=== PATIENT | male | born 1980 | race Caucasian/White ===

== ENCOUNTER 2021-01-07 02:58 | Emergency (ER) | payer BC ==
[~2021-01-07] VITALS: Ht 182.9 cm; Wt 86.2 kg
[~2021-01-07 02:58] MED LIST: NAPR500 PO
[2021-01-07] MEDS ORDERED: GAVRETO100 MG (03:12)
[2021-01-07] MEDS ORDERED: GABA100 (03:13)
[2021-01-07 03:32] LABS: BASOPHILS ABSOLUTE AUTO 0.04 K/mm3 (0.00-0.23); BASOPHILS PERCENT AUTO 1 % (0-2); EOSINOPHILS ABSOLUTE AUTO 0.26 K/mm3 (0.00-0.68); EOSINOPHILS PERCENT AUTO 4 % (0-6); Hematocrit 38.2 % (37.0-53.0); Hemoglobin 13.5 g/dL (13.5-17.5); IMMATURE GRAN ABSOLUTE AUTO 0.02 K/mm3 (0.00-0.10); IMMATURE GRAN PERCENT AUTO 0 % (0-1); LYMPHOCYTES ABSOLUTE AUTO 2.93 K/mm3 (0.84-5.20); LYMPHOCYTES PERCENT AUTO 44 % (21-46); MONOCYTES ABSOLUTE AUTO 0.66 K/mm3 (0.16-1.47); MONOCYTES PERCENT AUTO 10 % (4-13); Mean Corpuscular HGB 35.8 pg (26.0-34.0); Mean Corpuscular HGB Conc 35.3 g/dL (31.5-36.5); Mean Corpuscular Volume 101 fL (80-100); Mean Platelet Volume 9.6 fL (9.1-12.4); NEUTROPHILS ABSOLUTE AUTO 2.76 K/mm3 (1.96-9.15); NEUTROPHILS PERCENT AUTO 41 % (41-73); Platelet Count 143 K/mm3 (150-400); RDW Coefficient Variation 13.1 % (11.7-14.2); RDW Standard Deviation 48.3 fL (35.1-46.3); Red Blood Cell Count 3.77 M/mm3 (4.30-5.90); White Blood Cell Count 6.67 K/mm3 (4.00-11.30)
[2021-01-07 03:45] LABS: Alanine Aminotransfer (ALT/SGP 59 U/L (12-78); Albumin, Blood 3.4 g/dL (3.4-5.0); Alk Phos 79 U/L (50-136); Anion Gap 12 mmol/L (6-16); Aspartate Aminotrans (AST/SGOT 95 U/L (12-37); Bilirubin, Total 0.7 mg/dL (0.1-1.0); Blood Urea Nitrogen 7 mg/dL (8-24); Bun/Creatinine Ratio 10.9 (12.0-20.0); CO2, Blood 20 mmol/L (21-32); Calcium, Blood 8.1 mg/dL (8.5-10.1); Chloride, Blood 114 mmol/L (98-108); Creatinine, Blood 0.64 mg/dL (0.60-1.20); Globulin, Blood 3.5 g/dL (2.2-4.0); Glomerular Filtration Rate >60 (60-); Glucose, Blood 81 mg/dL (70-99); Potassium, Blood 3.6 mmol/L (3.5-5.5); Sodium, Blood 146 mmol/L (136-145); Total Protein, Blood 6.9 g/dL (6.4-8.2)
[2021-01-07 04:40] LABS: Ethanol (Alcohol), Blood, Med 300 mg/dL
[2021-01-07] MEDS ORDERED: Kristalose20 GM PO (05:29)
== END 2021-01-07 06:30 | disposition home or self-care (01) ==
LOC: ER 02:58
PROVIDERS: Emergency Medicine
DX: G40.909 Epilepsy, unspecified, not intractable, without status epilepticus (principal); K70.40 Alcoholic hepatic failure without coma; F10.129 Alcohol abuse with intoxication, unspecified; F17.200 Nicotine dependence, unspecified, uncomplicated; Z88.5 Allergy status to narcotic agent; Z79.899 Other long term (current) drug therapy
CPT/HCPCS: 36415; 80053; 82140; 85025; 96360; 99284-25; G0480; J3411; J3475; J7042

== ENCOUNTER 2023-07-19 15:09 | Emergency (ER) | payer BC ==
[~2023-07-19] VITALS: Ht 182.9 cm; Wt 79.8 kg
[~2023-07-19 15:09] MED LIST changes: +GABA100; +GAVRETO100 MG; +Kristalose20 GM PO
[2023-07-19 15:17] VITALS: BP 124/82
[2023-07-19 16:05] LABS: BASOPHILS ABSOLUTE AUTO 0.03 K/mm3 (0.00-0.23); BASOPHILS PERCENT AUTO 1 % (0-2); EOSINOPHILS ABSOLUTE AUTO 0.07 K/mm3 (0.00-0.68); EOSINOPHILS PERCENT AUTO 1 % (0-6); Hematocrit 39.9 % (37.0-53.0); Hemoglobin 13.6 g/dL (13.5-17.5); IMMATURE GRAN ABSOLUTE AUTO 0.01 K/mm3 (0.00-0.10); IMMATURE GRAN PERCENT AUTO 0 % (0-1); LYMPHOCYTES ABSOLUTE AUTO 1.02 K/mm3 (0.84-5.20); LYMPHOCYTES PERCENT AUTO 20 % (21-46); MONOCYTES ABSOLUTE AUTO 0.43 K/mm3 (0.16-1.47); MONOCYTES PERCENT AUTO 9 % (4-13); Mean Corpuscular HGB 32.8 pg (26.0-34.0); Mean Corpuscular HGB Conc 34.1 g/dL (31.5-36.5); Mean Corpuscular Volume 96 fL (80-100); Mean Platelet Volume 9.7 fL (9.1-12.4); NEUTROPHILS ABSOLUTE AUTO 3.46 K/mm3 (1.96-9.15); NEUTROPHILS PERCENT AUTO 69 % (41-73); RDW Coefficient Variation 19.5 % (11.7-14.2); RDW Standard Deviation 69.1 fL (35.1-46.3); Red Blood Cell Count 4.15 M/mm3 (4.30-5.90); White Blood Cell Count 5.02 K/mm3 (4.00-11.30)
[2023-07-19 16:07] LABS: International Normalized Ratio 1.5; Prothrombin Time Results 15.4 Sec (9.7-11.5)
[2023-07-19 16:10] LABS: Albumin/Globulin Ratio 0.7 (0.8-1.8); Bun/Creatinine Ratio 13.6 (12.0-20.0); Calcium, Blood 8.4 mg/dL (8.5-10.1); Creatinine, Blood 0.51 mg/dL (0.60-1.20); Globulin, Blood 4.2 g/dL (2.2-4.0); Total Protein, Blood 7.2 g/dL (6.4-8.2)
[2023-07-19 16:30] LABS: Platelet Count 41 K/mm3 (150-400)
== END 2023-07-19 17:00 | disposition home or self-care (01) ==
LOC: ER 15:09
PROVIDERS: Physician Assistant
DX: R18.8 Other ascites (principal); K74.60 Unspecified cirrhosis of liver; D69.6 Thrombocytopenia, unspecified; K72.90 Hepatic failure, unspecified without coma; F17.200 Nicotine dependence, unspecified, uncomplicated; Z88.5 Allergy status to narcotic agent; Z79.899 Other long term (current) drug therapy
CPT/HCPCS: 80053; 85025; 85610; 85730; 99284

== ENCOUNTER 2023-09-22 01:33 | Emergency (ER) | payer BC, OTHER ==
[~2023-09-22] VITALS: Ht 182.9 cm; Wt 73.5 kg
[~2023-09-22 01:33] MED LIST changes: +CHLO25 PO
[2023-09-22] MEDS ORDERED: Pantoprazole Sodium 40 MG Injection IV ONE (01:40)
[2023-09-22 01:45] LABS: Calcium, Ionized (POC) 1.11 mmol/L (1.10-1.46); Chloride (POC) 103 mmol/L (98-108); Creatinine (POC) 0.7 mg/dL (0.8-1.3); Glucose (ISTAT POC) 117 mg/dL (70-99); Hemoglobin (POC) 8.8 g/dL (13.5-17.5); Potassium (POC) 3.3 mmol/L (3.5-5.5); Sodium (POC) 136 mmol/L (135-148); Total CO2 (POC) 18 mmol/L (21-32)
[2023-09-22] MEDS ORDERED: NS 1,000 ML IV SCH (01:45)
[2023-09-22 01:47] LABS: BASOPHILS ABSOLUTE AUTO 0.06 K/mm3 (0.00-0.23); BASOPHILS PERCENT AUTO 1 % (0-2); EOSINOPHILS ABSOLUTE AUTO 0.43 K/mm3 (0.00-0.68); EOSINOPHILS PERCENT AUTO 4 % (0-6); Hematocrit 25.9 % (37.0-53.0); Hemoglobin 8.7 g/dL (13.5-17.5); IMMATURE GRAN ABSOLUTE AUTO 0.05 K/mm3 (0.00-0.10); IMMATURE GRAN PERCENT AUTO 0 % (0-1); LYMPHOCYTES ABSOLUTE AUTO 1.45 K/mm3 (0.84-5.20); LYMPHOCYTES PERCENT AUTO 12 % (21-46); MONOCYTES ABSOLUTE AUTO 1.13 K/mm3 (0.16-1.47); MONOCYTES PERCENT AUTO 9 % (4-13); Mean Corpuscular HGB 34.8 pg (26.0-34.0); Mean Corpuscular HGB Conc 33.6 g/dL (31.5-36.5); Mean Corpuscular Volume 104 fL (80-100); Mean Platelet Volume 10.5 fL (9.1-12.4); NEUTROPHILS ABSOLUTE AUTO 9.19 K/mm3 (1.96-9.15); NEUTROPHILS PERCENT AUTO 75 % (41-73); Platelet Count 134 K/mm3 (150-400); RDW Coefficient Variation 16.4 % (11.7-14.2); RDW Standard Deviation 62.3 fL (35.1-46.3); White Blood Cell Count 12.31 K/mm3 (4.00-11.30)
[2023-09-22] MEDS ORDERED: Octreotide Acetate 50 MCG in NS 50 ML IV ONE (01:50)
[2023-09-22] MEDS ORDERED: Ondansetron HCl 2 MG / ML 2ML Vial IV ONE (01:55)
[2023-09-22 02:03] LABS: International Normalized Ratio 1.32; Prothrombin Time Results 13.6 Sec (9.7-11.5)
[2023-09-22] MEDS ORDERED: HYDROmorphone HCl/Pf 1MG SYR IV ONE (02:05)
[2023-09-22 02:06] LABS: Albumin, Blood 1.9 g/dL (3.4-5.0); Albumin/Globulin Ratio 0.5 (0.8-1.8); Bilirubin, Total 2.4 mg/dL (0.1-1.0); Bun/Creatinine Ratio 12.2 (12.0-20.0); Calcium, Blood 7.8 mg/dL (8.5-10.1); Creatinine, Blood 0.57 mg/dL (0.60-1.20); Globulin, Blood 3.8 g/dL (2.2-4.0); Potassium, Blood 3.3 mmol/L (3.5-5.5); Total Protein, Blood 5.7 g/dL (6.4-8.2)
[2023-09-22] MEDS ORDERED: Octreotide Acetate 500 MCG in NS 250 ML IV SCH (02:15)
[2023-09-22] MEDS ORDERED: LANSOPRAZOLE30 MG PO (02:16)
[2023-09-22] MEDS ORDERED: ESCITALOPRAM OXA5 MG PO (02:18)
[2023-09-22] MEDS ORDERED: DOXEPIN HCL3 MG PO (02:18)
[2023-09-22] MEDS ORDERED: FUROSEMIDE20 MG PO (02:19)
[2023-09-22] MEDS ORDERED: DIAZEPAM5 M2 PO (02:19)
[2023-09-22] MEDS ORDERED: SPIRONOLACTONE25 MG PO (02:20)
[2023-09-22] MEDS ORDERED: VASOPRESSIN IV SCH (02:20)
[2023-09-22] MEDS ORDERED: Naltrexone HCl50 MG PO (02:20)
[2023-09-22] MEDS ORDERED: Vasopressin 20 UNITS in NS 100 ML IV SCH ×4 (02:30→04:10)
[2023-09-22] MEDS ORDERED: fentaNYL citrate 1,000 MCG in NS 80 ML IV SCH (02:55)
[2023-09-22] MEDS ORDERED: NS 1,000 ML IV ONE (02:59)
[2023-09-22] MEDS ORDERED: Midazolam HCL 50 MG in NS 40 ML IV SCH (03:00)
[2023-09-22] MEDS ORDERED: Pantoprazole Sodium 40 MG in NS 50 ML IV SCH (03:35)
[2023-09-22] MEDS ORDERED: LORazepam 2 MG/ML 1ML Injection IV ONE (04:30)
[2023-09-22 05:20] VITALS: BP 120/74
[2023-09-22] MEDS ORDERED: Rocuronium Bromide 10 MG/ML 5ML Injection IV ONE (16:20)
[2023-09-22] MEDS ORDERED: Etomidate 2MG / ML 10ML Vial IV ONE (16:20)
[2023-09-22] MEDS ORDERED: Midazolam HCl 1MG / ML 2ML Vial IV ONE (16:20)
== END 2023-09-22 05:44 | disposition short-term general hospital (02) ==
LOC: ER 01:33
PROVIDERS: Emergency Medicine
DX: K92.2 Gastrointestinal hemorrhage, unspecified (principal); R57.1 Hypovolemic shock; Z59.89 Other problems related to housing and economic circumstances; Z75.3 Unavailability and inaccessibility of health-care facilities; Z87.19 Personal history of other diseases of the digestive system; F17.200 Nicotine dependence, unspecified, uncomplicated; Z79.899 Other long term (current) drug therapy; Z88.5 Allergy status to narcotic agent
CPT/HCPCS: 31500; 36430; 43460; 51702; 71045; 80047; 80053; 83605; 85014; 85025; 85610; 85730; 86850; 86900; 86901; 86923; 93005; 93010; 94002; 96365-59; 96366-59; 96375-59; 96376-59; 99291-25; 99292; C9113; J1170; J2060; J2250; J2354; J2405; J3010; J7030; J7050; P9012; P9016

== ENCOUNTER 2024-01-28 19:49 | Emergency (ER) | payer OTHER ==
[~2024-01-28] VITALS: Ht 182.9 cm; Wt 83.9 kg
[~2024-01-28 19:49] MED LIST changes: +DIAZEPAM5 M2 PO; +DOXEPIN HCL3 MG PO; +ESCITALOPRAM OXA5 MG PO; +FUROSEMIDE20 MG PO; +LANSOPRAZOLE30 MG PO; +Naltrexone HCl50 MG PO; +SPIRONOLACTONE25 MG PO
[2024-01-28 19:51] VITALS: BP 122/71
[2024-01-28] MEDS ORDERED: GABA100 PO (20:02)
[2024-01-28] MEDS ORDERED: PRAZOSIN HCL1 M2 PO (20:02)
== END 2024-01-28 22:01 | disposition home or self-care (01) ==
LOC: ER 19:49
DX: S00.83XA Contusion of other part of head, initial encounter (principal); F17.200 Nicotine dependence, unspecified, uncomplicated; Y04.8XXA Assault by other bodily force, initial encounter; Z79.899 Other long term (current) drug therapy
CPT/HCPCS: 70450; 70486; 99284-25

== ENCOUNTER 2024-04-23 22:47 | Emergency (ER) | payer OTHER ==
[~2024-04-23] VITALS: Ht 182.9 cm; Wt 81.7 kg
[~2024-04-23 22:47] MED LIST changes: +GABA100 PO; +PRAZOSIN HCL1 M2 PO
[2024-04-23 23:33] LABS: BASOPHILS ABSOLUTE AUTO 0.07 K/mm3 (0.00-0.23); BASOPHILS PERCENT AUTO 1 % (0-2); EOSINOPHILS ABSOLUTE AUTO 0.23 K/mm3 (0.00-0.68); EOSINOPHILS PERCENT AUTO 4 % (0-6); Hematocrit 29.9 % (37.0-53.0); Hemoglobin 10.1 g/dL (13.5-17.5); IMMATURE GRAN ABSOLUTE AUTO 0.06 K/mm3 (0.00-0.10); IMMATURE GRAN PERCENT AUTO 1 % (0-1); LYMPHOCYTES ABSOLUTE AUTO 1.22 K/mm3 (0.84-5.20); LYMPHOCYTES PERCENT AUTO 21 % (21-46); MONOCYTES PERCENT AUTO 10 % (4-13); Mean Corpuscular HGB 35.2 pg (26.0-34.0); Mean Corpuscular HGB Conc 33.8 g/dL (31.5-36.5); Mean Corpuscular Volume 104 fL (80-100); NEUTROPHILS ABSOLUTE AUTO 3.59 K/mm3 (1.96-9.15); NEUTROPHILS PERCENT AUTO 62 % (41-73); RDW Coefficient Variation 21.4 % (11.7-14.2); Red Blood Cell Count 2.87 M/mm3 (4.30-5.90); White Blood Cell Count 5.77 K/mm3 (4.00-11.30)
[2024-04-23 23:37] LABS: Platelet Count 37 K/mm3 (150-400)
[2024-04-24 00:22] LABS: Albumin, Blood 2.1 g/dL (3.4-5.0); Albumin/Globulin Ratio 0.5 (0.8-1.8); Bilirubin, Total 27.4 mg/dL (0.1-1.0); Calcium, Blood 8.1 mg/dL (8.5-10.1); Creatinine, Blood 0.66 mg/dL (0.60-1.20); Globulin, Blood 4.6 g/dL (2.2-4.0); Potassium, Blood 3.7 mmol/L (3.5-5.5); Total Protein, Blood 6.7 g/dL (6.4-8.2)
[2024-04-24] MEDS ORDERED: Prochlorperazine Edisylate 10 mg Vial IV ONE (01:40)
[2024-04-24 03:21] LABS: Source, Urine Voided
[2024-04-24 03:26] LABS: Blood, Urine 1+ (Neg); Glucose Qualitative, Urine Neg (Neg); Ketones, Urine Neg (Neg); Leukocyte Esterase, Urine 1+ (Neg); Nitrite, Urine Pos (Neg); Protein, Urine 2+ (Neg); Specific Gravity, Urine 1.005 (1.003-1.022); Urobilinogen, Urine 4+ (Normal)
[2024-04-24 03:28] LABS: Appearance, Urine Cloudy (Clear); Bilirubin, Urine 3+ (Neg); Color, Urine Amber (P-Yellow)
[2024-04-24 03:50] LABS: Amorphous Heavy (0-Heavy); Bacteria Mod /hpf; Red Blood Cells, Urine 0-2 /hpf (0-2); Squamous Epithelial Cells Few /hpf (Few)
[2024-04-24 04:00] VITALS: BP 112/87
== END 2024-04-24 04:23 | disposition home or self-care (01) ==
LOC: ER 22:47
PROVIDERS: Emergency Medicine
DX: K70.31 Alcoholic cirrhosis of liver with ascites (principal); D69.6 Thrombocytopenia, unspecified; E80.6 Other disorders of bilirubin metabolism; N39.0 Urinary tract infection, site not specified; F10.90 Alcohol use, unspecified, uncomplicated; F17.200 Nicotine dependence, unspecified, uncomplicated; Z79.899 Other long term (current) drug therapy
CPT/HCPCS: 36415; 80053; 81001; 82140; 83605; 83690; 85025; 96374; 99284-25; J0780